=== PATIENT | male | born 1965 | race Two or more races ===

== ENCOUNTER 2018-10-03 07:52 | Day surgery (SDC) | payer OTHER ==
[~2018-10-03 07:52] MED LIST: LAMICTAL XR100 MG PO; MIRAPEX0.25 MG PO; MIRTAZAPINE7.5 MG PO; PERCOCET 10-321 EACH PO; RESTORIL30 M1 PO; SEROQUEL300 MG PO
== END 2018-10-03 17:40 | disposition home or self-care (01) ==
LOC: CIR.AMB 07:52
DX: T84.7XXA Infection and inflammatory reaction due to other internal orthopedic prosthetic devices, implants and grafts, initial encounter (principal); B96.89 Other specified bacterial agents as the cause of diseases classified elsewhere; M65.841 Other synovitis and tenosynovitis, right hand